=== PATIENT | female | born 1975 | race Caucasian/White ===

== ENCOUNTER 2022-04-24 12:14 | Emergency (ER) | payer BC, SELFPAY ==
[2022-04-24 13:30] VITALS: BP 140/76; PULSE 75; RESP 18; TEMP 36.6; O2SAT 98
--- NOTE | 2022-04-24 13:36 | ED.SKABFB ---
HPI - Skin/Abscess/Foreign Bdy General Chief complaint: Skin/Abscess/Foreign Body Stated complaint: laceration left thumb Time Seen by Provider: 04/24/22 13:36 Source: patient Mode of arrival: ambulatory Limitations: no limitations History of Present Illness HPI narrative: 46-year-old female presented for complaint of laceration to the left thumb about 2 hours prior to arrival. States the nail was cut as well. She applied a firm compress to the site. Did not cleanse prior to arrival. Bleeding has stopped. She states she is up-to-date on tetanus. Endorses mild pain described as burning, rates 2 out of 10. Review of Systems Review of Systems: CONSTITUTIONAL: Denies body aches, fever, chills, or sweats. EYES: Denies visual changes, redness, or discharge. ENT: Denies rhinorrhea, congestion CARDIOVASCULAR: Denies chest pain, palpitations, or edema. RESPIRATORY: Denies cough or dyspnea. GASTROINTESTINAL: Denies abdominal pain, nausea, vomiting, or diarrhea. SKIN: per HPI MUSCULOSKELETAL: Denies back pain, joint pain, or myalgia. NEUROLOGIC: Denies headache, numbness, tingling, or weakness. PMFSH Comments At time of signature, I have reviewed and agree with nursing past medical, surgical, social and family history unless otherwise noted. Please see nursing chart for further information. There is no relevant family history pertinent to the presenting complaint Exam Narrative: GENERAL: Well-appearing HEAD: Normocephalic, atraumatic. EYES: conjunctivae clear, and EOMI. NECK: Supple. No lymphadenopathy SKIN: Warm, dry. Approximately 1 cm laceration to the left thumb at the nail, ulnar aspect. Approximately 0.5 cm laceration into the nail bed. No subungual hematoma. The nail is even and sufficiently intact within the nail folds. NEURO: Alert and oriented x3. Course Course Emergency Course: Patient is aware of diagnosis, understands and agrees to treatment plan. Anticipatory guidance given. Patient agrees to follow-up as directed and is aware of reasons to seek care at the emergency department. Portions of this record may have been created with voice recognition software Level of Care: Express Care Visit Vital Signs Vital signs: Vital Signs Temperature 98 F 04/24/22 13:30 Pulse Rate 75 04/24/22 13:30 Respiratory Rate 18 04/24/22 13:30 Blood Pressure 140/76 04/24/22 13:30 Pulse Oximetry 98 04/24/22 13:30 Oxygen Delivery Room Air 04/24/22 13:30 Temperature 98 F 04/24/22 13:30 Pulse Rate 75 04/24/22 13:30 Respiratory Rate 18 04/24/22 13:30 Blood Pressure 140/76 04/24/22 13:30 Pulse Oximetry 98 04/24/22 13:30 Oxygen Delivery Room Air 04/24/22 13:30 Reviewed Procedures Laceration left thumb: Size (cm): 1 Description: linear and clean Depth: simple, single layer Pre-repair: irrigated ====== Skin Level ====== Skin layer closed with: dermabond and steri strips ====== Subcutaneous Layer ====== ====== Muscle Layer ====== ====== Tendon Layer ====== Dressing: No active bleeding. Wound cleansed prior to closure. Patient tolerated well. MDM - Skin/Abscess/Foreign Bdy MDM Narrative Medical decision making narrative: Instructed patient to go to nearest ER immediately for any worsening symptoms including but not limited to: fever, redness, swelling, drainage, or any symptoms concerning to the patient. Differential Diagnosis Differential diagnosis: Likely other (laceration, abrasion, avulsion, abscess, subungual hematoma) Discharge Plan Discharge Clinical Impression: Finger laceration Qualifiers: Encounter type: initial encounter Finger: thumb Damage to nail status: with damage Foreign body presence: without foreign body Laterality: left Qualified Code(s): S61.112A - Laceration without foreign body of left thumb with damage to nail, initial encounter Patient Disposition: Home, Self-Care Condition:
== END 2022-04-24 14:00 | disposition home or self-care (01) ==
PROVIDERS: Emergency Provider Nurse Practitioner Family
DX: S61.112A Laceration without foreign body of left thumb with damage to nail, initial encounter (principal); X58.XXXA Exposure to other specified factors, initial encounter
CPT/HCPCS: 12001; 99212; G0463